=== PATIENT | female | born 1990 | race American Indian/Alaskan Native ===

== ENCOUNTER 2019-06-26 18:45 | Emergency (ER) | payer BC ==
--- NOTE | 2019-06-26 19:23 | Event Note ---
ED Screening Note ED Screening Note: lower abd pain that began three days ago no n/v/d +urinary frequency no fever PMHx none no allergies to meds LNMP: 06/09/19 This initial assessment/diagnostic orders/clinical plan/treatment(s) is/are subject to change based on patients health status, clinical progression and re- assessment by fellow clinical providers in the ED. Further treatment and workup at subsequent clinical providers discretion. Patient/guardian urged not to elope from the ED as their condition may be serious if not clinically assessed and managed. Initial orders include: labs, UA, urine preg
[2019-06-26 19:49] LABS: Basophils # (Auto) 0.1 K/mm3 (0.0-0.1); Basophils % (Auto) 0.5 % (0.0-1.8); Eosinophils # (Auto) 0.1 K/mm3 (0.0-0.4); Eosinophils % (Auto) 0.7 % (0.0-4.3); Hematocrit 42.7 % (30.3-42.9); Hemoglobin 14.2 gm/dl (10.1-14.3); Lymphocytes # (Auto) 2.9 K/mm3 (1.2-5.4); Lymphocytes % (Auto) 26.4 % (13.4-35.0); Mean Corpuscular HGB Conc 33 % (30-34); Mean Corpuscular Volume 89 fl (79-97); Monocytes # (Auto) 0.8 K/mm3 (0.0-0.8); Monocytes % (Auto) 7.5 % (0.0-7.3); Platelet Count 245 K/mm3 (140-440); Red Cell Distribution Width 12.9 % (13.2-15.2)
[2019-06-26 20:11] LABS: Alanine Aminotransferase 12 units/L (7-56); Albumin 3.5 g/dL (3.9-5); BUN/Creatinine Ratio 10; Blood Urea Nitrogen 6 mg/dL (7-17); Calcium 8.8 mg/dL (8.4-10.2); Hemolysis Index 22
[2019-06-26 20:26] LABS: Bilirubin,Urine NEG (Negative); Blood,Urine NEG (Negative); Color,Urine Yellow (Yellow); Mucus,Urine FEW /HPF; Protein,Urine <15 mg/dL mg/dL (Negative)
[2019-06-26 20:34] LABS: HCG Qualitative,Urine Negative (Negative)
[2019-06-26] MEDS ORDERED: FAMOTIDINE 20 MG TAB PO ONE (21:43)
[2019-06-26] MEDS ORDERED: ONDANSETRON 4 MG ODT TAB PO ONE (21:43)
[2019-06-26] MEDS ORDERED: DICYCLOMINE 20 MG TAB PO ONE (21:43)
--- NOTE | 2019-06-26 23:13 | Emergency Department Report ---
ED Abdominal Pain HPI - General Chief Complaint: Abdominal Pain Stated Complaint: ABD PAIN Time Seen by Provider: 06/26/19 19:21 Source: patient Mode of arrival: Ambulatory Limitations: No Limitations - History of Present Illness Initial Comments: Patient is a pleasant 29-year-old -[place] female with no past medical history who presents to the ED with a complaint of acute onset persistent epigastric pain that radiates to the left upper quadrant for the last 3 days. Patient denies nausea, vomiting, fever, chills, cough, dysuria, urinary rose quency and urgency, headache, dizziness, chest pain or shortness of breath, hematuria, sore throat or diarrhea. MD Complaint: abdominal pain -: Sudden, days(s) (3) Location: LUQ, epigastric Radiation: LUQ, epigastric Migration to: LUQ, epigastric Severity: moderate Severity scale (0 -10): 5 Quality: aching, dull Consistency: intermittent Improves With: nothing Worsens With: nothing Associated Symptoms: denies other symptoms. denies: nausea, vomiting, diarrhea, chills, constipation, dysuria, hematemesis, hematochezia, melena, hematuria - Related Data LMP Date: 06/14/19 Previous Rx's Medication Instructions Recorded Last Taken Type Dicyclomine [Bentyl] 20 mg PO Q6H PRN #24 tablet 06/26/19 Unknown Rx Famotidine [Pepcid] 20 mg PO Q12H #40 tablet 06/26/19 Unknown Rx Ketorolac [Toradol] 10 mg PO Q8H PRN #20 tablet 06/26/19 Unknown Rx Allergies Allergy/AdvReac Type Severity Reaction Status Date / Time No Known Allergies Allergy Unverified 06/26/19 19:17 ED Review of Systems ROS: Stated complaint: ABD PAIN Other details as noted in HPI Constitutional: denies: chills, fever Eyes: denies: eye pain, eye discharge, vision change ENT: denies: ear pain, throat pain Respiratory: denies: cough, shortness of breath, wheezing Cardiovascular: denies: chest pain, palpitations Endocrine: no symptoms reported Gastrointestinal: abdominal pain. denies: nausea, vomiting, diarrhea Genitourinary: denies: urgency, dysuria, discharge Musculoskeletal: denies: back pain, joint swelling, arthralgia Skin: denies: rash, lesions Neurological: denies: headache, weakness, paresthesias Psychiatric: denies: anxiety, depression Hematological/Lymphatic: denies: easy bleeding, easy bruising ED Past Medical Hx - Past Medical History Previous Medical History?: No - Surgical History Past Surgical History?: No - Social History Smoking Status: Never Smoker Substance Use Type: None - Medications Home Medications: Home Medications Medication Instructions Recorded Confirmed Last Taken Type Dicyclomine [Bentyl] 20 mg PO Q6H PRN #24 tablet 06/26/19 Unknown Rx Famotidine [Pepcid] 20 mg PO Q12H #40 tablet 06/26/19 Unknown Rx Ketorolac [Toradol] 10 mg PO Q8H PRN #20 tablet 06/26/19 Unknown Rx ED Physical Exam - General Limitations: No Limitations General appearance: alert, in no apparent distress - Head Head exam: Present: atraumatic, normocephalic, normal inspection - Eye Eye exam: Present: normal appearance, PERRL Pupils: Present: normal accommodation - ENT ENT exam: Present: normal exam, normal orophraynx, mucous membranes moist, TM's normal bilaterally, normal external ear exam - Neck Neck exam: Present: normal inspection, full ROM. Absent: lymphadenopathy - Respiratory Respiratory exam: Present: normal lung sounds bilaterally. Absent: respiratory distress, wheezes, chest wall tenderness, accessory muscle use - Cardiovascular Cardiovascular Exam: Present: regular rate, normal rhythm, normal heart sounds. Absent: systolic murmur, diastolic murmur, rubs, gallop - GI/Abdominal GI/Abdominal exam: Present: soft, tenderness (mildly tender epigastric and left upper quadrant ), normal bowel sounds. Absent: guarding, hyperactive bowel sounds, hypoactive bowel sounds - Extremities Exam Extremities exam: Present: normal inspection, full ROM, normal capillary refill - Back Exam Back exam: Present: normal inspection, full ROM - Neurological Exam Neurological exam: Present: alert, oriented X3, CN II-XII intact, normal gait, reflexes normal - Psychiatric Psychiatric exam: Present: normal affect, normal mood - Skin Skin exam: Present: warm, dry, intact, normal color. Absent: rash ED Course Vital Signs 06/26/19 19:13 Temperature 98.1 F Pulse Rate 76 Respiratory 16 Rate Blood Pressure 125/82 O2 Sat by Pulse 99 Oximetry ED Medical Decision Making - Lab Data Result diagrams: 06/26/19 19:28 06/26/19 19:28 - Medical Decision Making This is a 29-year-old female who presented to the ED with complaint of acute onset persistent abdominal pain in the epigastric and left upper quadrant area for the last 3 days intermittently. In the ED, patient is a Latin oriented 3 and is not in distress with normal vital signs. Lab test results were reviewed about on actionable including urinalysis. Patient was treated for GERD and on reevaluation, patient's pain is well controlled with medications. Patient was discharged home on medications and was advised to follow-up with her primary care physician in 5-7 days for reevaluation or return to the ED immediately if symptoms get worse. - Differential Diagnosis GERD; Gastritis; Viral gastroenteritis; UTI Critical care attestation.: If time is entered above; I have spent that time in minutes in the direct care of this critically ill patient, excluding procedure time. ED Disposition Clinical Impression: Abdominal pain Qualifiers: Abdominal location: generalized Qualified Code(s): R10.84 - Generalized abdominal pain GERD (gastroesophageal reflux disease) Qualifiers: Esophagitis presence: without esophagitis Qualified Code(s): K21.9 - Gastro-esophageal reflux disease without esophagitis Disposition: TO HOME OR SELFCARE Is pt being admited?: No Does the pt Need Aspirin: No Condition: Stable Instructions: Abdominal Pain (ED), Gastroesophageal Reflux Disease (ED) Additional Instructions: Take pain medications as needed with food, drink plenty of fluids and follow-up with the [employer] [facility] physician or primary care physician and 7-10 days for reevaluation. Return to the ED immediately if symptoms get worse. Prescriptions: Dicyclomine [Bentyl] 20 mg PO Q6H PRN #24 tablet PRN Reason: Pain , Severe (7-10) Famotidine [Pepcid] 20 mg PO Q12H #40 tablet Ketorolac [Toradol] 10 mg PO Q8H PRN #20 tablet PRN Reason: Pain Referrals: BRENDA MACIAS MD [Staff Physician] - 3-5 Days Time of Disposition: 23:09 Print Language: GEORGI[place]
[2019-06-26 23:46] VITALS: BP 119/70
== END 2019-06-26 23:46 | disposition home or self-care (01) ==
LOC: ED 18:45
DX: K21.9 Gastro-esophageal reflux disease without esophagitis (principal); Z79.899 Other long term (current) drug therapy
CPT/HCPCS: 36415; 80053; 81001; 81025; 83690; 85025; Q0162